=== PATIENT | female | born 1960 | race Caucasian/White ===

== ENCOUNTER 2018-06-25 08:26 | Inpatient (IN) | payer MEDICAID ==
[~2018-06-25] VITALS: Ht 162.6 cm; Wt 72.7 kg
[~2018-06-25 08:26] MED LIST: ALPR-624 PO; METH-603 PO; WALKERFR
[2018-06-25] MEDS ORDERED: acetaminophen 325mg tablet PO STA (09:14)
[2018-06-25] MEDS ORDERED: normal saline 1000ML IV soln IV ONE ×2 (09:15→09:40)
[2018-06-25] MEDS ORDERED: CefTRIAXone 2gm/D5W 50ml 50 ML IV ONE (09:40)
[2018-06-25 09:42] LABS: CLARITY,URINE SLIGHTLY CLOUDY (Clear); COLOR,URINE YELLOW (Yellow); GLUCOSE, URINE NEGATIVE (Neg); KETONES,URINE NEGATIVE (Neg); LEUKOCYTE ESTERASE ,URINE LARGE (Neg); NITRITES, URINE NEGATIVE (Neg); OCCULT BLOOD,URINE TRACE-LYSED (Neg); PROTEIN,URINE NEGATIVE (Neg); UROBILINOGEN,URINE 0.2 E.U/dL (0.2-1.0)
[2018-06-25 10:01] LABS: UA COLLECTION TYPE CLN CATCH MIDSTREAM
[2018-06-25 10:02] LABS: BACTERIA,URINE 1+ /HPF (Neg); RBC,URINE 0-2 /HPF (0-2); SQUAMOUS EPITHELIAL CELL,UR MANY /LPF (FEW)
[2018-06-25] MEDS ORDERED: LISI-600 PO (10:13)
[2018-06-25] MEDS ORDERED: METF500T PO (10:14)
[2018-06-25 10:15] LABS: URINE AMPHETAMINE SCREEN POSITIVE (Neg); URINE BARBITUATE SCREEN NEGATIVE (Neg); URINE BENZODIAZEPINES SCREEN POSITIVE (Neg); URINE CANNABINOID SCREEN NEGATIVE (Neg); URINE COCAINE SCREEN NEGATIVE (Neg); URINE METHADONE SCREEN POSITIVE (Neg); URINE OPIATE SCREEN NEGATIVE (Neg); URINE PHENCYCLIDINE SCREEN NEGATIVE (Neg)
[2018-06-25 10:17] LABS: BASOPHILS % (AUTO) 0.2 % (0-1); EOSINOPHILS # (AUTO) 0.2 X10'3 (0-0.9); EOSINOPHILS % (AUTO) 1.1 % (0-6); HEMATOCRIT 37.4 % (35.0-45.0); HEMOGLOBIN 12.8 g/dl (12.0-16.0); LYMPHOCYTES # (AUTO) 1.3 X10'3 (1.1-4.8); LYMPHOCYTES % (AUTO) 8.6 % (21-51); MEAN CORPUSCULAR HEMOGLOBIN 31.3 PG (27.0-31.0); MEAN CORPUSCULAR HGB CONC 34.1 % (33.0-36.5); MEAN CORPUSCULAR VOLUME 91.6 FL (78-98); MEAN PLATELET VOLUME 6.4 FL (7.4-10.4); MONOCYTES # (AUTO) 0.7 X10'3 (0-0.9); NEUTROPHILS # (AUTO) 12.6 X10'3 (1.8-7.7); NEUTROPHILS % (AUTO) 85.1 % (42-75); PLATELET COUNT 245 X10'3 (140-440); RED BLOOD COUNT 4.08 X10'6 (4.20-5.60); RED CELL DISTRIBUTION WIDTH 12.9 % (11.5-14.5); WHITE BLOOD COUNT 14.8 X10'3 (4.5-11.0)
[2018-06-25 10:27] LABS: ETHANOL < 0.010 GM/DL (0.0-0.010); PARTIAL THROMBOPLASTIN TIME 28 SECONDS (22-32); PROTHROMBIN TIME 10.5 SECONDS (9.0-12.0)
[2018-06-25 10:40] LABS: ALANINE AMINOTRANSFERASE 29 U/L (12-78); ALBUMIN/GLOBULIN RATIO 0.8 (1.1-1.5); ALKALINE PHOSPHATASE 86 IU/L (46-116); ANION GAP 6 (8-16); ASPARTATE AMINO TRANSFERASE 27 U/L (10-37); BILIRUBIN,TOTAL 0.9 MG/DL (0.1-1.0); BLOOD UREA NITROGEN 17 MG/DL (7-18); BUN/CREATININE RATIO 18.9 (6.6-38.0); CALCIUM 8.2 MG/DL (8.5-10.1); CHLORIDE 101 MMOL/L (99-107); GLUCOSE 111 MG/DL (70-104); SODIUM 135 MMOL/L (135-145); TOTAL CARBON DIOXIDE 28.1 MMOL/L (24-32); TOTAL PROTEIN 6.6 G/DL (6.4-8.2); eGFR 64 ML/MIN
[2018-06-25 11:07] LABS: PLATELET ESTIMATE NORMAL; TOTAL CELLS COUNTED 100
[2018-06-25 13:43] VITALS: BP 103/56
[2018-06-25] MEDS ORDERED: ondansetron/PF 4mg/2ml inj IV PRN (14:05)
[2018-06-25] MEDS ORDERED: CefTRIAXone/D5W-Rocephin 1gm 50 ML IV ONE (14:05)
[2018-06-25] MEDS: normal saline 1000ml 1,000 ML IV SCH ×2 (14:15→23:48)
[2018-06-25] MEDS ORDERED: insulin Lispro (HumaLOG) vial - multi-dose SQ SCH (17:50)
[2018-06-25] MEDS ORDERED: dextrose 50%-water 50ml dispensing syringe IV PRN ×2 (17:50)
[2018-06-25] MEDS ORDERED: glucagon, human recombinant 1mg kit SUBCUT PRN (17:50)
[2018-06-25] MEDS ORDERED: dextrose ORAL solution 15 GM/59 ML bottle PO PRN ×2 (17:50)
[2018-06-25] MEDS ORDERED: MESSAGE TO PHARMACY PO ONE (17:50)
[2018-06-25 19:00] VITALS: BP 111/61
[2018-06-25 19:53] LABS: HEMOGLOBIN A1C 6.2 % (4.5-6.2)
[2018-06-25] MEDS ORDERED: insulin glargine (Lantus) pen - multi-dose SQ SCH (21:00)
[2018-06-25] MEDS ORDERED: ALPRAZolam 0.25mg tablet PO PRN (21:15)
[2018-06-25] MEDS ORDERED: acetaminophen 325mg tablet PO PRN (23:40)
[2018-06-26] VITALS: BP 116/62
[2018-06-26 05:57] LABS: BASOPHILS % (AUTO) 0.2 % (0-1); EOSINOPHILS # (AUTO) 0.3 X10'3 (0-0.9); EOSINOPHILS % (AUTO) 2.2 % (0-6); HEMATOCRIT 34.7 % (35.0-45.0); HEMOGLOBIN 11.6 g/dl (12.0-16.0); LYMPHOCYTES # (AUTO) 3.3 X10'3 (1.1-4.8); LYMPHOCYTES % (AUTO) 25.2 % (21-51); MEAN CORPUSCULAR HEMOGLOBIN 31.2 PG (27.0-31.0); MEAN CORPUSCULAR HGB CONC 33.4 % (33.0-36.5); MEAN CORPUSCULAR VOLUME 93.5 FL (78-98); MEAN PLATELET VOLUME 7.1 FL (7.4-10.4); MONOCYTES % (AUTO) 7.4 % (2-12); NEUTROPHILS # (AUTO) 8.4 X10'3 (1.8-7.7); PLATELET COUNT 228 X10'3 (140-440); RED BLOOD COUNT 3.71 X10'6 (4.20-5.60); RED CELL DISTRIBUTION WIDTH 13.4 % (11.5-14.5)
[2018-06-26 06:13] LABS: ALBUMIN 2.8 G/DL (3.4-5.0); ANION GAP 3 (8-16); BLOOD UREA NITROGEN 12 MG/DL (7-18); BUN/CREATININE RATIO 13.2 (6.6-38.0); CALCIUM 8.1 MG/DL (8.5-10.1); CHLORIDE 103 MMOL/L (99-107); CREATININE 0.91 MG/DL (0.40-0.90); GLUCOSE 82 MG/DL (70-104); POTASSIUM 3.7 MMOL/L (3.5-5.1); SODIUM 135 MMOL/L (135-145); TOTAL CARBON DIOXIDE 29.3 MMOL/L (24-32); eGFR 63 ML/MIN
[2018-06-26 07:00] VITALS: BP 111/68
[2018-06-26] MEDS ORDERED: CefTRIAXone/D5W-Rocephin 1gm 50 ML IV SCH (08:00)
== END 2018-06-26 08:10 | disposition left against medical advice (07) | DRG 812 ==
LOC: ER 08:27 → ED HOLD 11:42 → SUR 3N 13:34
PROVIDERS: ADMIT Internal Medicine; ATTEND Internal Medicine
DX: T43.621A Poisoning by amphetamines, accidental (unintentional), initial encounter (principal); J96.01 Acute respiratory failure with hypoxia; G92 Toxic encephalopathy; B18.2 Chronic viral hepatitis C; F15.10 Other stimulant abuse, uncomplicated; I10 Essential (primary) hypertension; K76.0 Fatty (change of) liver, not elsewhere classified; N39.0 Urinary tract infection, site not specified; M19.90 Unspecified osteoarthritis, unspecified site; R00.0 Tachycardia, unspecified; Z53.21 Procedure and treatment not carried out due to patient leaving prior to being seen by health care provider; Z79.899 Other long term (current) drug therapy; Y92.89 Other specified places as the place of occurrence of the external cause
CPT/HCPCS: 36415; 71045; 80048; 80053; 80305; 80320; 81001; 82948; 83036; 83605; 84145; 85025; 85610; 85730; 87040; 87070; 96361; 96365; 99285; J0696; J1815; J7030